=== PATIENT | female | born 1975 | race Caucasian/White ===

== ENCOUNTER 2017-10-25 06:30 | Day surgery (SDC) | payer OTHER ==
[~2017-10-25] VITALS: Ht 154.9 cm; Wt 66.2 kg
[2017-10-25] MEDS ORDERED: MIDAZOLAM 2 MG/2 ML VIAL ONE ×2 (07:51)
[2017-10-25] MEDS ORDERED: fentaNYL 0.05 MG/ML VIAL ONE (07:51)
== END 2017-10-25 09:05 | disposition home or self-care (01) ==
LOC: MDS 06:30 → MMU 06:32 → MDS 09:05
PROVIDERS: ATTEND Internal Medicine Gastroenterology
DX: K25.9 Gastric ulcer, unspecified as acute or chronic, without hemorrhage or perforation (principal); K31.89 Other diseases of stomach and duodenum; E66.3 Overweight; Z68.27 Body mass index [BMI] 27.0-27.9, adult; Z72.89 Other problems related to lifestyle; Z79.899 Other long term (current) drug therapy; Z88.1 Allergy status to other antibiotic agents; Z98.890 Other specified postprocedural states; Z80.0 Family history of malignant neoplasm of digestive organs; Z90.49 Acquired absence of other specified parts of digestive tract
CPT/HCPCS: 36415; 43239; 86677; J2250; J3010; J7030